=== PATIENT | female | born 1965 | race African-American/Black ===

== ENCOUNTER 2022-04-20 06:34 | Emergency (ER) | payer OTHER ==
[~2022-04-20] VITALS: Ht 167.6 cm; Wt 81.6 kg
[2022-04-20] MEDS ORDERED: KETOROLAC TROMETHAMINE 30 MG/ML VIAL IM STA (06:45)
[2022-04-20] MEDS ORDERED: NAPROXEN250 MG PO (06:58)
[2022-04-20 08:58] VITALS: BP 158/72
== END 2022-04-20 08:59 | disposition home or self-care (01) ==
LOC: ER 06:44
DX: M25.512 Pain in left shoulder (principal); M25.522 Pain in left elbow; M25.552 Pain in left hip; M25.562 Pain in left knee; W18.30XA Fall on same level, unspecified, initial encounter; Y93.01 Activity, walking, marching and hiking; Y92.89 Other specified places as the place of occurrence of the external cause; I10 Essential (primary) hypertension; G47.30 Sleep apnea, unspecified; M54.9 Dorsalgia, unspecified; G89.29 Other chronic pain
CPT/HCPCS: 99283; J1885